=== PATIENT | female | born 1960 | race Caucasian/White ===

== ENCOUNTER 2023-06-11 18:38 | Emergency (ER) | payer BC ==
[2023-06-11] MEDS ORDERED: Ibuprofen 400 MG Tab PO ONE (19:28)
[2023-06-11] MEDS ORDERED: Acetaminophen 325 MG Tab PO ONE (19:28)
[2023-06-11] MEDS ORDERED: Lidocaine 4% 1 each Patch TOP PRN (19:29)
== END 2023-06-11 22:02 | disposition home or self-care (01) ==
LOC: MW.ED 18:38
DX: M79.651 Pain in right thigh (principal); W18.30XA Fall on same level, unspecified, initial encounter
CPT/HCPCS: 73502-26-RT; 73502-RT; 73552-26-LT; 73552-RT; 73560-26-RT; 73560-RT; 99283; 99284